=== PATIENT | female | born 2000 | race Caucasian/White ===

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

== ENCOUNTER 2019-01-25 03:26 | Emergency (ER) | payer BC ==
[~2019-01-25] VITALS: Ht 165.1 cm; Wt 98.6 kg
[~2019-01-25 03:26] MED LIST: FAMO-96 PO; NAPR-985 PO; ONDA4TAB14 PO
[2019-01-25 03:34] VITALS: Ht 165.1 cm; Wt 98.6 kg
[2019-01-25] MEDS ORDERED: LORA-441 PO (05:22)
[2019-01-25 05:37] VITALS: BP 131/82; PULSE 97; RESP 18
--- NOTE | 2019-02-10 12:36 | ERD ---
ER Documentation Chief Complaint Chief Complaint seen 01/25/2019 anxiety/chest pain x 30 minutes ago HPI 18-year-old female with no significant past medical history presents for pain and feeling anxious for about 30 minutes. Patient states that she was feeling anxious, could not speak, she can stop moving and she was sweating. She had some chest pain that is noted to be in the substernal area. Pain is rated 3 out of 10. There is no pain radiation. Described the pain is a dull sensation. Pain lasted for minutes. She had associated mild shortness of breath. She has had prior similar symptoms in the past was feeling anxious and stressed out. She denies any fevers or chills. Denies any abdominal pain, nausea, vomiting. No other modifying factors noted, no treatment tried at home. Denies any drug use. ROS All systems reviewed and are negative except as per history of present illness. Medications Home Meds Active Scripts Lorazepam* (Ativan*) 0.5 Mg Tablet, 0.5 MG PO Q8H PRN for ANXIETY, #10 TAB Prov:JACI DURAND DO 01/25/19 Ondansetron (Ondansetron Odt) 4 Mg Tab.rapdis, 4 MG PO Q6H PRN for NAUSEA AND/OR VOMITING, #10 TAB Prov:RADHA TERRY PA-C 04/20/18 Famotidine* (Pepcid*) 20 Mg Tablet, 20 MG PO BID for 4 Days, #30 TAB Prov:RADHA TERRY PA-C 04/20/18 Naproxen* (Naprosyn*) 500 Mg Tablet, 500 MG PO BID PRN for PAIN AND/OR INFLAMMATION, #30 TAB Prov:ANN VANESSA PA-C 11/15/17 Allergies Allergies: Coded Allergies: No Known Allergy (Unverified , 01/25/19) PMhx/Soc Medical and Surgical Hx: pt denies Medical Hx, pt denies Surgical Hx History of Surgery: No Anesthesia Reaction: No Hx Neurological Disorder: No Hx Respiratory Disorders: No Hx Cardiac Disorders: No Hx Psychiatric Problems: No Hx Miscellaneous Medical Probl: No Hx Alcohol Use: No Hx Substance Use: No Hx Tobacco Use: No Smoking Status: Never smoker FmHx Family History: No coronary disease Physical Exam Vitals Temperature 97.8, pulse 98, respiration 18, blood pressure 121/71, O2 saturation 97% on room air Physical Exam Const: No acute distress Head: Atraumatic Eyes: Normal Conjunctiva ENT: Normal External Ears, Nose and Mouth. Neck: Full range of motion. No meningismus. Resp: Clear to auscultation bilaterally Cardio: Regular rate and rhythm, no murmurs Abd: Soft, non tender, non distended. Normal bowel sounds Skin: No petechiae or rashes Back: No midline or flank tenderness Ext: No cyanosis, or edema Neur: Awake and alert Psych: Normal Mood and Affect Procedures/MDM Medical Decision Making: Differential diagnosis includes but not limited to ACS, anxiety, pulmonary embolism, pneumothorax, aortic dissection Patient appeared well on physical exam. ED course: EKG: Rate/Rhythm: Normal Sinus Rhythm QRS, ST, T-waves: No changes consistent w/ acute ischemia Impression: No evidence of ischemia or arrhythmia There is low suspicion for ACS given patient's age and lack of risk factors as well as her normal EKG Also low suspicion for PE or aortic dissection. Patient possibly has anxiety Prescription(s): Patient given prescription for supportive medication(s) including ativan short course low dose Patient advised to follow up with PCP in 1-2 days. Patient advised to return to ED for new or worsening symptoms. Patient stable on discharge from the ED. Disclaimer: Inadvertent spelling and grammatical errors are likely due to EHR/dictation software use and do not reflect on the overall quality of patient care. Also, please note that the electronic time recorded on this note does not necessarily reflect the actual time of the patient encounter. Departure Diagnosis: Primary Impression: Chest pain Additional Impression: Anxiety Condition: Fair Patient Instructions: Anxiety Reaction Additional Instructions: Call your primary care doctor TOMORROW for an appointment during the next 1-2 days.See the doctor sooner or return here if your condition worsens before your appointment time. JACI DURAND DO Feb 10, 2019 12:36
== END 2019-01-25 05:56 | disposition home or self-care (01) ==
LOC: FTE 03:26
DX: R07.9 Chest pain, unspecified (principal); F41.9 Anxiety disorder, unspecified
CPT/HCPCS: 93005; Z7502